=== PATIENT | female | born 1970 | race Caucasian/White ===

== ENCOUNTER → 2023-02-07 15:35 | Outpatient (CLI) | payer BC, SELFPAY ==
--- NOTE | ~2023-02-07 | XR_ITS ---
EXAMINATION: XR chest 2V 02/07/2023 15:50 INDICATION: Chest wall pain PROCEDURE: 2 view chest COMPARISON: No prior studies for comparison. FINDINGS: The lungs are clear. The cardiomediastinal silhouette is within normal limits. There are no pleural effusions. There is no pneumothorax suspected. IMPRESSION: 1: NO ACUTE CARDIOPULMONARY DISEASE. Reviewed, dictated and finalized at location A.
--- NOTE | ~2023-02-07 | XR_ITS ---
EXAMINATION: XR clavicle RT INDICATION: Pain in the chest wall mass TECHNIQUE: Two views of the right clavicle are obtained. COMPARISON: None available FINDINGS: Bone alignment is normal. There is no fracture. No definite soft tissue mass is identified. There is mild osteoarthritis of the acromioclavicular joint. IMPRESSION: 1. Mild osteoarthritis of the acromioclavicular joint without acute osseous abnormality or soft tissu e identified. Reviewed, dictated and finalized at location F. IMPRESSION: 1. Mild osteoarthritis of the acromioclavicular joint without acute osseous abn ormality or soft tissue identified.
== END ==
PROVIDERS: PCP Physician Assistant; Visit Provider Physician Assistant
DX: M19.011 Primary osteoarthritis, right shoulder (principal)
CPT/HCPCS: 71046; 73000